=== PATIENT | female | born 1945 | race Caucasian/White ===

== ENCOUNTER 2019-07-17 06:12 | Inpatient (IN) | payer OTHER, SELFPAY ==
[~2019-07-17] VITALS: Ht 157.5 cm; Wt 62.3 kg
[2019-07-17] MEDS ORDERED: metroNIDAZOLE 500 mg/NS 100 ML PREMIX IV ONE (06:45)
[2019-07-17] MEDS ORDERED: LEVOFLOXACIN 500 MG/D5W 100 ML IV ONE ×2 (06:45→12:00)
[2019-07-17] MEDS ORDERED: ALVIMOPAN 12 MG CAPSULE PO ONE ×2 (06:45→06:49)
[2019-07-17] MEDS ORDERED: BUPIVACAINE LIPOSOME/PF 266 MG/20 ML VIAL INFIL ONE (07:36)
[2019-07-17] MEDS ORDERED: THYR30TA PO (07:51)
[2019-07-17] MEDS ORDERED: HYDROmorphone 1 MG INJ. 1 MG/ML AMPUL IVP PRN ×2 (09:45→10:00)
[2019-07-17] MEDS ORDERED: HYDROcodone/ACETAMIN 5-325 MG TAB (NORCO/ VICODIN) PO PRN ×2 (09:45)
[2019-07-17] MEDS ORDERED: ONDANSETRON HCL 4 MG/2 ML VIAL IVP PRN (09:45)
[2019-07-17] MEDS ORDERED: D5/0.45 NS 1,000 ML IV SCH (09:45)
[2019-07-17] MEDS ORDERED: HYDROmorphone 2 MG/ML VIAL IVP PRN ×2 (10:00)
[2019-07-17] MEDS ORDERED: PROPOFOL 200MG/ 20ML VIAL (DIPRIVAN) IV ONE (10:00)
[2019-07-17] MEDS ORDERED: MEPERIDINE HCL/PF 25 MG/ML DISP.SYRIN IVP PRN (10:00)
[2019-07-17] MEDS ORDERED: HYDROmorphone 2 MG/ML VIAL ONE (10:00)
[2019-07-17] MEDS ORDERED: ROCURONIUM BROMIDE 10 MG/ML (ZEMURON) ONE (10:00)
[2019-07-17] MEDS ORDERED: GLYCOPYRROLATE 0.2 MG/ML VIAL ONE (10:00)
[2019-07-17] MEDS ORDERED: KETOROLAC TROMETHAMINE 30 MG VIAL ONE (10:00)
[2019-07-17] MEDS ORDERED: SUCCINYLCHOLINE CHLORIDE 20 MG/ML(QUELICIN) ONE (10:00)
[2019-07-17] MEDS ORDERED: LR 1,000 ML IV SCH (10:00)
[2019-07-17] MEDS ORDERED: NEOSTIGMINE METHYLSULFATE 1 MG/ML, 10 ML VIAL ONE (10:00)
[2019-07-17] MEDS ORDERED: LR 1,000 ML IV.SOLN IV ONE (10:00)
[2019-07-17] MEDS ORDERED: MIDAZOLAM HCL 5 MG/ML VIAL (VERSED) IV ONE (10:00)
[2019-07-17] MEDS ORDERED: SEVOFLURANE 15 MIN GAS INH ONE (10:00)
[2019-07-17 10:21] LABS: HEMATOCRIT 38.2 % (36-48); HEMOGLOBIN 13.4 g/dL (12.0-16.0)
[2019-07-17] MEDS ORDERED: HYDROmorphone 1 MG INJ. 1 MG/ML AMPUL ONE (10:24)
[2019-07-17 10:32] LABS: ANION GAP 10 (5-15); CALCIUM 7.2 mg/dL (8.4-11.0); CHLORIDE 104 mmol/L (98-107); CREATININE 0.61 mg/dL (0.55-1.30); GLUCOSE 156 mg/dL (70-99); POTASSIUM 3.7 mmol/L (3.5-5.1); SODIUM SERUM 136 mmol/L (136-145); UREA NITROGEN, BLOOD 9 mg/dL (8-21)
[2019-07-17 12:00] VITALS: BP_SYST 112
--- NOTE | 2019-07-17 12:00 | NUR ---
ADMISSION: RECEIVED PT FROM OR, S/P LAP HEMICOLECTOMY, A/A/OX4, WITH STABLE VS, AFEBRILE, NO C/O PAIN OR DISCOMFORT, SURGICAL SITE WITH ABD DRESSING CLEAN, DRY AND INTACT, IV SITE INTACT, PATENT, NO REDNESS OR SWELLING, [place] CATH, DRAINING CLEAR, YELLOW URINE TO GRAVITY, SECURE LOCK IN PLACE, ORIENTED TO UNIT, CALL LIGHT PLACED WITHIN REACH, WILL CONT' TO MONITOR AND ASSESS.
--- NOTE | 2019-07-17 14:00 | NUR ---
NURSES NOTES: PT REMAINS STABLE, NO C/O PAIN OR DISCOMFORT, VS WNL, REORIENTED TO INCENTIVE SPIROMETER, EDUCATED ON USE OF PILLOW TO SPLINT ABDOMEN WHEN COUGHING OR REPOSITIONING, ALSO EDUCATED ON PREVENTION OF UTI'S, PT MADE COMFORTABLE, CALL LIGHT PLACED WITHIN REACH, WILL CONT' TO MONITOR AND ASSESS.
[2019-07-17] MEDS: metroNIDAZOLE 500 mg/NS 100 ML IV SCH ×2 (15:41→23:20)
--- NOTE | 2019-07-17 17:04 | NUR ---
CONSULT MEDICAL MANAGEMENT S/P POST OP DR RAMIREZ [phone] S/W ROBYN EXCHANGE
--- NOTE | 2019-07-17 18:00 | NUR ---
NURSES NOTES: PT REMAINS STABLE, POSITIONED UPRIGHT IN BED, ICE CHIPS GIVEN, NO C/O PAIN, WILL CONT' TO MONITOR AND ASSESS, WILL ENDORSE TO PACKAGE LIFT OPERATOR NURSE.
--- NOTE | 2019-07-17 19:20 | NUR ---
CHANGE OF SHIFT; pt. awake, alert when received. S/P hemicolectomy today. IVF infusing, denies pain at this time. call light within reach. kept NPO except ice chips.will assess later.
[2019-07-17 20:15] VITALS: BP_SYST 119
[2019-07-17] MEDS: FAMOTIDINE PF 20 MG/2 ML VIAL IVP SCH (20:27)
--- NOTE | 2019-07-17 20:30 | NUR ---
NOTES: VS checked. due IV medication given. checked abdominal dressing dry and intact. IV site on left hand, needs to call Dr. Mayfield to verify IVF and pt. does not want [place] for her pain. pt. repositioned. Instructed on use of Incentive spirometer, encouraged on deep breathing. on room air, wearing face mask. both sequentials on her legs. on bed alarm, call light within reach.
--- NOTE | 2019-07-17 20:53 | NUR ---
Paged Julio Sanchez RN spoke to the doctor
--- NOTE | 2019-07-17 20:58 | NUR ---
NOTES: called Dr. Mayfield's exchange and return the call to verify IVF order and pain medication.
[2019-07-17] MEDS: D5/0.45 NS 1,000 ML IV SCH (21:39)
[2019-07-17] MEDS: ACETAMINOPHEN/CODEINE 300 MG-30 MG TABLET PO PRN (21:40)
--- NOTE | 2019-07-17 21:40 | NUR ---
NOTES: pt. medicated with tylenol with codeine po with few sips of water for c/o post-op abdominal pain. IVF changed to D5 1/2 NS @ 100 cc/hr. vial left wrist hand. Incentive spirometer done x10 @ 500 ml. HOB slightly elevated. kept warm with blanket.
--- NOTE | 2019-07-17 23:35 | NUR ---
NOTES: pt. awakened, been hearing alarms. IV antibiotic in progress. pt. door closed per request. bed alarm on. call light within reach.
[2019-07-18 00:09] VITALS: BP_SYST 113
--- NOTE | 2019-07-18 02:00 | NUR ---
NOTES: made rounds and pt. sleeping, no distress. IVF continuous. call light within reach.
--- NOTE | 2019-07-18 04:00 | NUR ---
NOTES: pt. woke up, wants to get out of bed. advised to stay in bed till am. repositioned and asked to turn to sides with pillow support. IVF continuous. pt. still wants to sit up at the edge of the bed, asked LEACHER to stay with her.
--- NOTE | 2019-07-18 05:30 | NUR ---
NOTES: pt. checked and sleeping. IV continuous. no distress.
--- NOTE | 2019-07-18 06:21 | NUR ---
CLOSING NOTES; pt. already awake, wants to ambulate. informed to wait till her smith removed today. IVF continuos with NS @ 100 cc/hr. reminded to use incentive spirometer whenever awake and verbalized understanding. abdominal dressing dry and intact. smith cath to OSD> fall precautions observed. call light within reach. kept NPO.for further care and assistance.
[2019-07-18 06:49] LABS: BASOPHILS % (AUTO) 0.2 % (0.0-2.0); HEMATOCRIT 38.1 % (36-48); HEMOGLOBIN 13.4 g/dL (12.0-16.0); LYMPHOCYTES % (AUTO) 9.4 % (20.5-51.5); MEAN CORPUSCULAR HEMOGLOBIN 31 pg (27-31); MEAN CORPUSCULAR HGB CONC 35 % (32-36); MEAN CORPUSCULAR VOLUME 87 fL (79.0-98.0); MONOCYTES # (AUTO) 0.9 K/uL (0.0-1.0); MONOCYTES % (AUTO) 8.9 % (1.7-9.3); NEUTROPHILS # (AUTO) 8.3 K/uL (1.8-7.7); NEUTROPHILS % (AUTO) 81.5 % (40.0-70.0); PLATELET COUNT (AUTO) 253 K/uL (130-430); RED BLOOD CELL COUNT(AUTO) 4.36 MIL/uL (4.2-6.2); RED CELL DISTRIBUTION WIDTH 13.1 % (9.0-15.0); WHITE BLOOD COUNT (AUTO) 10.1 K/uL (4.8-10.8)
--- NOTE | 2019-07-18 06:55 | NUR ---
Nutrition Update Jatinder Scale 16 noted. Pt admitted for Polyp of colon Diet: NPO BMI: 25.1 kg/m2 RD to follow per nutrition care standards.
[2019-07-18 07:08] LABS: ALANINE AMINOTRANSFERASE 27 U/L (12-78); ALBUMIN 2.8 g/dL (3.4-4.8); ANION GAP 9 (5-15); ASPARTATE AMINOTRANSFERASE 22 U/L (10-37); CHLORIDE 104 mmol/L (98-107); CREATININE 0.59 mg/dL (0.55-1.30); GLUCOSE 149 mg/dL (70-99); POTASSIUM 3.9 mmol/L (3.5-5.1); SODIUM SERUM 135 mmol/L (136-145); TOTAL BILIRUBIN 0.5 mg/dL (0.0-1.0); UREA NITROGEN, BLOOD 11 mg/dL (8-21)
[2019-07-18 08:00] VITALS: BP_SYST 155
--- NOTE | 2019-07-18 08:00 | NUR ---
initial notes rec patient awake alert and requested to be sitted at the bedside. and bertrand well. rep easy and unlabored and no sob noted. bed to the lowest position and side rails up and locked. call light withn reached and knows when to call for assistance. abd dressing dry and intact. no bleeding noted,.
[2019-07-18] MEDS: FAMOTIDINE PF 20 MG/2 ML VIAL IVP SCH ×2 (09:00→20:38)
[2019-07-18] MEDS: ALVIMOPAN 12 MG CAPSULE PO SCH ×2 (09:00→20:33)
[2019-07-18] MEDS: ENOXAPARIN SODIUM 30 MG/0.3 ML SYRINGE SUBCUT SCH (09:03)
[2019-07-18] MEDS: ACETAMINOPHEN 325 MG TABLET PO PRN ×2 (09:11→13:38)
[2019-07-18] MEDS: D5/0.45 NS 1,000 ML IV SCH ×2 (09:13→20:40)
--- NOTE | 2019-07-18 09:30 | NUR ---
rounds seen by dr michael ontiveros and orders. no osb noted. call light within reached.
[2019-07-18] MEDS: THYROID 30 MG TABLET PO SCH (10:45)
[2019-07-18 12:34] VITALS: BP_SYST 125
--- NOTE | 2019-07-18 13:00 | NUR ---
rounds smith cath was discontinued and awaiting for patient to void. denies pain at this time. sitting at bedside and eating lunch.
[2019-07-18] MEDS: METOCLOPRAMIDE HCL 10 MG/2 ML VIAL IVP SCH ×2 (13:38→19:24)
--- NOTE | 2019-07-18 16:00 | NUR ---
rounds ambulating in the room and was medicated for unbearable pain pain level of 8. went to sleep after.
[2019-07-18 16:41] VITALS: BP_SYST 116
--- NOTE | 2019-07-18 19:00 | NUR ---
closing notes pt stated felt much better after pain med and rested. no osb noted. ivf infusing well. no infiltration noted. call light within reached.
--- NOTE | 2019-07-18 19:20 | NUR ---
CHANGE OF SHIFT; pt. awake, resting when received. no distress noted. S/P rt. hemicolectomy post op day 1. will assess later. call light within reach.
[2019-07-18 20:15] VITALS: BP_SYST 133
--- NOTE | 2019-07-18 20:15 | NUR ---
NOTES: VS checked. no discomfort at this time. abdominal dressing intact with binder in place. IV infusing via left wrist hand with D5 1/2 NS @ 100 cc/hr. moves all extremities. instructed on deep breathing and use of incentive spirometer. on room air. started on clear liquid , no nausea nor vomiting. on fall risk precaution. call light at bedside.
--- NOTE | 2019-07-18 21:00 | NUR ---
NOTES: pt. ambulated to the restroom and voided ,on stand by assist. pt. needs attended, due med given, tolerating clear liquid . IVF continuous. call light within reach. repositioned self for comfort.
--- NOTE | 2019-07-18 22:00 | NUR ---
NOTES: pt. called and needs to use restroom, assisted by PIZZA MAKER.
[2019-07-19 00:06] VITALS: BP_SYST 127
[2019-07-19] MEDS: ACETAMINOPHEN/CODEINE 300 MG-30 MG TABLET PO PRN ×2 (00:09→08:36)
--- NOTE | 2019-07-19 00:15 | NUR ---
NOTES: IV site on left wrist keeps alarming for high pressure, already flushed, appears infiltrated , restarted another IV on rt forearm with gauge #22 by nurse Chawla, resume IVF. Addendum: 07/19/19 at 0042 by Nanette Chauhan RN late entry medicated with Tylenol with codeine po for post op abdominal pain @ 0010 . Incentive spirometer used x 10 @ 500ml
[2019-07-19] MEDS: METOCLOPRAMIDE HCL 10 MG/2 ML VIAL IVP SCH ×3 (00:39→17:48)
[2019-07-19] MEDS: D5/0.45 NS 1,000 ML IV SCH ×3 (03:00→21:14)
--- NOTE | 2019-07-19 03:30 | NUR ---
NOTES: pt. called, needs help to go restroom and assisted. IVF continuous.
--- NOTE | 2019-07-19 05:30 | NUR ---
NOTES: pt. been sleeping. IVF infusing. no further complaints. condition observed, call light within reach.
--- NOTE | 2019-07-19 06:37 | NUR ---
CLOSING NOTES; pt. ambulates to the restroom and voided. IVF patent. abdominal dressing intact with abdominal binder. encouraged on use of incentive spirometer and deep breathing exercise. with tolerable pain. post op day 2. call light within reach. for further care and assistance.
--- NOTE | 2019-07-19 08:00 | NUR ---
INITIAL NOTES Resting in bed. No distress on room air. IVF is infusing well. Ambulates to the restroom independently. Complained of abdominal pain when moving. Abdominal dressing is intact, covered with abdominal binder. Encouraged use of incentive spirometer. Fall and safety checks in place. Call light within reach. Will medicate for pain.
[2019-07-19 08:06] VITALS: BP_SYST 142
--- NOTE | 2019-07-19 08:30 | NUR ---
MD ROUNDS Dr. Mayfield saw and examined patient at bedside. Removed abdominal dressing, no active bleeding noted.
[2019-07-19] MEDS: ALVIMOPAN 12 MG CAPSULE PO SCH ×2 (08:35→20:51)
[2019-07-19] MEDS: ENOXAPARIN SODIUM 30 MG/0.3 ML SYRINGE SUBCUT SCH (08:51)
[2019-07-19] MEDS: FAMOTIDINE PF 20 MG/2 ML VIAL IVP SCH ×2 (08:52→20:50)
[2019-07-19] MEDS: THYROID 30 MG TABLET PO SCH (09:26)
--- NOTE | 2019-07-19 09:53 | NUR ---
ROUNDS Resting in bed. IVF infusing well. Reported of bowel movement. Pain is controlled at this time per patient. Safety checks done. Will continue to monitor.
--- NOTE | 2019-07-19 10:25 | NUR ---
P.T. NOTES AFTER MULTIPLE ATTEMPTS PATIENT REFUSED TO BE SEEN BY P.T., STATES NOT FEELING WELL DUE TO HAVING A BAD NIGHT.
--- NOTE | 2019-07-19 12:30 | NUR ---
ROUNDS Resting in bed. No shortness of breath on room air. Pain is controlled at this time per patient. IVF infusing well. Expressed that she is feeling better. Educated on her IV medication, verbalized understanding. Safety checks done. Will continue to monitor.
--- NOTE | 2019-07-19 14:40 | NUR ---
ROUNDS Asleep at this time. IVF infusing well. Safety checks done. Will continue to monitor.
[2019-07-19 16:17] VITALS: BP_SYST 106
--- NOTE | 2019-07-19 17:15 | NUR ---
ROUNDS Ambulates independently to the restroom, no sign of distress. Pain is controlled at this time. Reported 4 loose bowel movement today. Safety checks done. Call light within reach. Will continue to monitor.
--- NOTE | 2019-07-19 18:39 | NUR ---
CLOSING NOTES Up and walking in the room. No sign of pain or shortness of breath. IVF infusing well. Surgical site is intact, no sign of bleeding or infection, still wearing her abdominal binder. All needs met throughout shift. Fall and safety checks done. Call light within reach. Will endorse to night nurse.
[2019-07-19 19:00] VITALS: BP_SYST 122
--- NOTE | 2019-07-19 19:15 | NUR ---
change of shift.pt.presents s/p surgery;adbomen incision.. has removed the dsg;incision open to air w/abdomen binder.no drains. absent j-domi.pt.presents iv acces intact;patent iv fluids infusing.pt.presents o2@room air;unlabored.call light/telephone w/in reach of the pt.
[2019-07-19 20:00] VITALS: BP_SYST 122
--- NOTE | 2019-07-19 20:00 | NUR ---
pt.assessed.v/s assessed values w/in normal limits.no c/o pain,nausea.i have apprised the pt.that her diet status remains clear liquids per ;surgeon. had ordered diet advanced.pt.refused the dinner tray; i apprised the pt.that snacks/beverages are available w/in the shift per the diet status;clear liquids.no requests posited@this hour.i have assessed the abdomen incision;approximated;absent drainage.hue w/in normal limits.i have auscultated the bowel sounds.iv access intact;patent iv fluids infusing.pt.capable to reposition self.call light/telephone w/in reach of the pt.
--- NOTE | 2019-07-19 21:00 | NUR ---
2100pmedications administered;po/ivp.i have assisted pt.to the restroom. i have assisted the pt's return to bed.gait assessed;unsteady 2/t lower extremity weakness.pt.refused the walker.
--- NOTE | 2019-07-19 22:00 | NUR ---
pt.assessed.pt.presents quiescent affect;calm,somnolent.iv access intact; patent iv fluids infusing.general status stable.respiratory status stable;unlabored.pt.capable to reposition self.call light/telephone w/in reach of the pt.
--- NOTE | 2019-07-20 | NUR ---
pt.assessed.v/s assessed;values w/in normal limits,no co pain,nausea. iv access intact;patent iv fluids infusing.i have administered reglan;10gm ivp. pt.capable to reposition self.general status stable.respiratory status stable;unlabored.call light/telephone w/in reach of the pt.
[2019-07-20] MEDS: METOCLOPRAMIDE HCL 10 MG/2 ML VIAL IVP SCH ×2 (00:08→05:17)
[2019-07-20 00:47] VITALS: BP_SYST 145
--- NOTE | 2019-07-20 02:00 | NUR ---
pt.assessed.pt.presents quiescent affect;calm,somnolent.pt.assessed for cleanliness.pt.repositioned.iv access intact;patent iv fluids infusing.no c/o pain,nausea. general status stable.respiratory status stable;unlabored.call light/telephone placed w/in reach of the pt.
--- NOTE | 2019-07-20 04:00 | NUR ---
pt.assessed.pt.presents quiescent affect;calm,somnolent.iv fluids intact;patent iv fluids infusing.general status stable.respiratory status stable;unlabored.pt.capable to reposition self.call light/ telephone w/in reach of the pt.
--- NOTE | 2019-07-20 06:22 | NUR ---
pt.assessed.pt.presents quiescent affect;calm,somnolent.no c/o pain,nausea. i have administered reglan;10mg ivp 0600a via peripheral line. iv access intact;patent iv fluids infusing.general status stable.respiratory status stable;unlabored.pt.capable to reposition self.call light/telephone w/in reach of the pt.
[2019-07-20 08:00] VITALS: BP_SYST 122
--- NOTE | 2019-07-20 08:00 | NUR ---
INITIAL NOTES Resting in bed, alert and oriented. No shortness of breath on room air. Pain is controlled at this time per patient. Midline abdominal incision intact, no sign of infection or active bleeding. Abdominal binder in place. Ambulates independently to the restroom. Fall and safety checks in place. Call light within reach. Will continue to monitor.
[2019-07-20 08:25] LABS: BASOPHILS # (AUTO) 0.1 K/uL (0.0-0.2); BASOPHILS % (AUTO) 0.5 % (0.0-2.0); EOSINOPHILS % (AUTO) 0.1 % (0.0-4.0); HEMATOCRIT 37.9 % (36-48); HEMOGLOBIN 13.5 g/dL (12.0-16.0); LYMPHOCYTES # (AUTO) 1.4 K/uL (1.0-5.5); LYMPHOCYTES % (AUTO) 12.5 % (20.5-51.5); MEAN CORPUSCULAR HEMOGLOBIN 31 pg (27-31); MEAN CORPUSCULAR HGB CONC 36 % (32-36); MEAN CORPUSCULAR VOLUME 87 fL (79.0-98.0); MONOCYTES # (AUTO) 0.7 K/uL (0.0-1.0); MONOCYTES % (AUTO) 6.6 % (1.7-9.3); NEUTROPHILS # (AUTO) 8.9 K/uL (1.8-7.7); NEUTROPHILS % (AUTO) 80.3 % (40.0-70.0); PLATELET COUNT (AUTO) 245 K/uL (130-430); RED BLOOD CELL COUNT(AUTO) 4.37 MIL/uL (4.2-6.2); RED CELL DISTRIBUTION WIDTH 13.1 % (9.0-15.0); WHITE BLOOD COUNT (AUTO) 11.2 K/uL (4.8-10.8)
[2019-07-20] MEDS: ENOXAPARIN SODIUM 30 MG/0.3 ML SYRINGE SUBCUT SCH (08:30)
[2019-07-20] MEDS: ALVIMOPAN 12 MG CAPSULE PO SCH (08:31)
[2019-07-20] MEDS: THYROID 30 MG TABLET PO SCH (08:31)
[2019-07-20] MEDS: FAMOTIDINE PF 20 MG/2 ML VIAL IVP SCH (08:33)
[2019-07-20 08:42] LABS: ANION GAP 7 (5-15); CALCIUM 7.8 mg/dL (8.4-11.0); CHLORIDE 103 mmol/L (98-107); CREATININE 0.52 mg/dL (0.55-1.30); GLUCOSE 150 mg/dL (70-99); POTASSIUM 3.1 mmol/L (3.5-5.1); SODIUM SERUM 134 mmol/L (136-145); TOTAL BILIRUBIN 0.9 mg/dL (0.0-1.0); UREA NITROGEN, BLOOD 4 mg/dL (8-21)
[2019-07-20 08:43] LABS: ALANINE AMINOTRANSFERASE 24 U/L (12-78); ALBUMIN 2.6 g/dL (3.4-4.8); ASPARTATE AMINOTRANSFERASE 16 U/L (10-37)
--- NOTE | 2019-07-20 10:00 | NUR ---
Resting in bed. No sign of distress. Pain is controlled at this time per patient. Encouraged to use incentive spirometer. Safety checks done. Call light within reach. Will continue to monitor.
[2019-07-20] MEDS ORDERED: POTASSIUM CHLORIDE 20 MEQ TAB.PRT.SR PO ONE (10:30)
[2019-07-20] MEDS: D5/0.45 NS 1,000 ML IV SCH (10:37)
[2019-07-20 11:58] VITALS: BP_SYST 98
[2019-07-20 12:00] VITALS: BP_SYST 133
== END 2019-07-20 12:30 | disposition home or self-care (01) | DRG 329 ==
LOC: SMU 06:12
PROVIDERS: ADMIT Colon & Rectal Surgery; ATTEND Colon & Rectal Surgery
PROC: 0DTF0ZZ Resection of Right Large Intestine, Open Approach (ICD-10-PCS; principal; 2019-07-17 07:30)
DX: K63.5 Polyp of colon (principal); E43 Unspecified severe protein-calorie malnutrition; Z88.8 Allergy status to other drugs, medicaments and biological substances; Z88.0 Allergy status to penicillin
CPT/HCPCS: 36415; 80048; 80053; 85018-TC; 85025; 87081; 88307; 97116-GP; C9290; J0330; J1170; J1650; J1885; J1956; J2250; J2704; J2710; J2765; J3490; J7120; U0002

== ENCOUNTER 2022-09-21 10:36 | Emergency (ER) | payer BC, OTHER ==
[~2022-09-21] VITALS: Ht 157.5 cm; Wt 61.2 kg
[2022-09-21 10:36] VITALS: BP_SYST 150; PULSE 62; RESP 16; TEMP 97.2; O2SAT 96
[~2022-09-21 10:36] MED LIST: THYR30TA PO
--- NOTE | 2022-09-21 10:36 | NUR ---
BROUGHT IN BY CARSON XIAO KELLY FIRE AND PLACED IN BED #1, TRIAGED. WILL ASSUME CARE
--- NOTE | 2022-09-21 10:40 | NUR ---
DR RECINOS AT BEDSIDE FOR EVALUATION
--- NOTE | 2022-09-21 10:42 | NUR ---
PT STATES SHE FELL OFF A LADDER APPROX 3 FEET LANDING ON RIGHT SHOULDER.
--- NOTE | 2022-09-21 10:53 | NUR ---
XRAYS AT BEDSIDE BEING DONE NOW.
--- NOTE | 2022-09-21 10:59 | NUR ---
FAMILY BROUGHT BACK TO BEDSIDE FOR COMFORT
[2022-09-21] MEDS ORDERED: MORPHINE 4 MG INJ. 4 MG/ML VIAL IM ONE (12:00)
[2022-09-21] MEDS ORDERED: NAPR-690 PO (12:32)
[2022-09-21] MEDS ORDERED: KETOROLAC TROMETHAMINE 60 MG/2 ML VIAL IM ONE (12:45)
--- NOTE | 2022-09-21 13:02 | NUR ---
Patient given written and verbal discharge instructions and verbalizes understanding. ER MD discussed with patient the results and treatment provided. Patient in stable condition. ID arm band removed. Patient educated on pain management and to follow up with PMD. Opportunity for questions provided and answered. Medication side effect fact sheet provided.
[2022-09-21] MEDS ORDERED: ONDANSETRON 4 MG ODT TAB PO ONE (13:15)
[2022-09-21 13:28] VITALS: BP_SYST 150; PULSE 62; RESP 16; TEMP 97.2; O2SAT 96
== END 2022-09-21 13:02 | disposition home or self-care (01) ==
LOC: SED 10:36
DX: S42.351A Displaced comminuted fracture of shaft of humerus, right arm, initial encounter for closed fracture (principal); Z88.0 Allergy status to penicillin; Z88.8 Allergy status to other drugs, medicaments and biological substances; Z79.899 Other long term (current) drug therapy; W11.XXXA Fall on and from ladder, initial encounter; Y93.89 Activity, other specified; Y92.89 Other specified places as the place of occurrence of the external cause; Y99.8 Other external cause status
CPT/HCPCS: 99284; 73030; 96372; Q0162; J1885; J2270

== ENCOUNTER 2023-12-17 11:59 | Emergency (ER) | payer BC ==
[~2023-12-17] VITALS: Ht 157.5 cm; Wt 59.0 kg
[~2023-12-17 11:59] MED LIST changes: +NAPR-690 PO
[2023-12-17 12:24] VITALS: BP_SYST 154; PULSE 78; RESP 22; TEMP 97.1; O2SAT 98
[2023-12-17 13:44] LABS: BASOPHILS # (AUTO) 0.1 K/uL (0.0-0.2); BASOPHILS % (AUTO) 0.8 % (0.0-2.0); EOSINOPHILS # (AUTO) 0.1 K/uL (0.0-0.4); HEMATOCRIT 39.3 % (36-48); HEMOGLOBIN 14.1 g/dL (12.0-16.0); LYMPHOCYTES # (AUTO) 1.4 K/uL (1.0-5.5); LYMPHOCYTES % (AUTO) 18.3 % (20.5-51.5); MEAN CORPUSCULAR HEMOGLOBIN 31 pg (27-31); MEAN CORPUSCULAR HGB CONC 36 % (32-36); MEAN CORPUSCULAR VOLUME 87 fL (79.0-98.0); MONOCYTES # (AUTO) 0.4 K/uL (0.0-1.0); MONOCYTES % (AUTO) 5.1 % (1.7-9.3); NEUTROPHILS # (AUTO) 5.7 K/uL (1.8-7.7); NEUTROPHILS % (AUTO) 74.8 % (40.0-70.0); PLATELET COUNT (AUTO) 269 K/uL (130-430); RED BLOOD CELL COUNT(AUTO) 4.51 MIL/uL (4.2-6.2); RED CELL DISTRIBUTION WIDTH 13.4 % (9.0-15.0); WHITE BLOOD COUNT (AUTO) 7.7 K/uL (4.8-10.8)
[2023-12-17 13:54] LABS: ALANINE AMINOTRANSFERASE 18 U/L (12-78); ALBUMIN 3.3 g/dL (3.4-4.8); ANION GAP 7 (5-15); ASPARTATE AMINOTRANSFERASE 19 U/L (10-37); CALCIUM 8.8 mg/dL (8.4-11.0); CARBON DIOXIDE 28 mmol/L (23-29); CHLORIDE 105 mmol/L (98-107); CREATININE 0.82 mg/dL (0.55-1.30); GLUCOSE 113 mg/dL (74-106); POTASSIUM 3.9 mmol/L (3.5-5.1); SODIUM SERUM 140 mmol/L (136-145); TOTAL BILIRUBIN 0.4 mg/dL (0.0-1.0); UREA NITROGEN, BLOOD 18 mg/dL (8-21)
[2023-12-17 13:57] LABS: BILIRUBIN,DIRECT 0.1 mg/dL (0.0-0.3); CREATINE KINASE, TOTAL 66 U/L (26-192)
[2023-12-17 14:11] LABS: INR 0.9 (0.8-1.2); PROTHROMBIN TIME 9.8 SECS (9.5-12.5)
[2023-12-17 14:45] VITALS: BP_SYST 118; PULSE 80; RESP 16; TEMP 97.1; O2SAT 97
== END 2023-12-17 14:49 | disposition home or self-care (01) ==
LOC: SED 11:59
DX: R55 Syncope and collapse (principal); R07.89 Other chest pain; R42 Dizziness and giddiness; E03.9 Hypothyroidism, unspecified; Z88.0 Allergy status to penicillin; Z88.1 Allergy status to other antibiotic agents; Z88.2 Allergy status to sulfonamides; Z79.899 Other long term (current) drug therapy
CPT/HCPCS: 36415; 70450-TC; 71045; 80048; 80076; 82550; 83605; 84484; 85025; 85610; 85730; 93005; 99285